=== PATIENT | male | born 1995 | race Caucasian/White ===

== ENCOUNTER 2018-12-14 00:23 | Emergency (ER) | payer OTHER ==
[~2018-12-14] VITALS: Ht 193 cm; Wt 112.0 kg
--- NOTE | 2018-12-14 00:45 | NUR ---
PT CALLED FOR ROOM, CURRENTLY WITH PD, NEXT PT ROOMED
[2018-12-14] MEDS ORDERED: LIDOCAINE-MPF 1%, 5ML INFIL ONE (01:00)
[2018-12-14] MEDS ORDERED: LIDOCAINE-MPF 1%, 5ML ONE (01:10)
--- NOTE | 2018-12-14 01:20 | NUR ---
CUSTOMER EXPERIENCE ASSOCIATE AT BEDSIDE FOR WOOUND IRRIGATION.
[2018-12-14 01:57] VITALS: BP 125/79
--- NOTE | 2018-12-14 01:57 | NUR ---
5 AYESHA PLACED. PATIENT DISCHARGED WITH INSTRUCTION. VERBALIZED UNDERSTANDING.
== END 2018-12-14 02:00 | disposition home or self-care (01) ==
LOC: ED 01:45
DX: S06.0X0A Concussion without loss of consciousness, initial encounter (principal); S01.01XA Laceration without foreign body of scalp, initial encounter; Y08.89XA Assault by other specified means, initial encounter; Y93.89 Activity, other specified; Y92.89 Other specified places as the place of occurrence of the external cause; Y99.8 Other external cause status
CPT/HCPCS: 12002; 99283

== ENCOUNTER 2018-12-20 11:38 | Emergency (ER) | payer OTHER ==
[~2018-12-20] VITALS: Ht 193 cm; Wt 109.0 kg
[2018-12-20 12:04] VITALS: BP 138/66
--- NOTE | 2018-12-20 12:30 | NUR ---
PATIENT BROUGHT BACK FOR STAPPLE REMOVAL.
--- NOTE | 2018-12-20 12:32 | NUR ---
AYESHA REMOVED, WOUND CDI. DISCHARGE INSTRUCTIONS REVIEWED
== END 2018-12-20 12:44 | disposition home or self-care (01) ==
LOC: ED 12:35
DX: S01.01XD Laceration without foreign body of scalp, subsequent encounter (principal); X58.XXXD Exposure to other specified factors, subsequent encounter
CPT/HCPCS: 99282